=== PATIENT | female | born 1980 ===

== ENCOUNTER → 2020-11-05 | Outpatient (CLI) | payer OTHER | END | disposition home or self-care (01) | LOC: PRENATAL 14:29 | PROVIDERS: ATTEND Obstetrics & Gynecology Maternal & Fetal Medicine | DX: O35.0XX1 Maternal care for (suspected) central nervous system malformation in fetus, fetus 1 (principal); O35.3XX1 Maternal care for (suspected) damage to fetus from viral disease in mother, fetus 1; O98.512 Other viral diseases complicating pregnancy, second trimester; O09.522 Supervision of elderly multigravida, second trimester; Z36.89 Encounter for other specified antenatal screening; Z3A.19 19 weeks gestation of pregnancy ==

== ENCOUNTER 2021-03-04 23:05 | Inpatient (IN) | payer OTHER ==
[~2021-03-04] VITALS: Ht 170.2 cm; Wt 99.8 kg
== END 2021-03-06 16:03 | disposition home or self-care (01) | DRG 833 ==
LOC: OBS/DEL 23:05 → LDR 03-05 17:05
PROVIDERS: ADMIT Obstetrics & Gynecology Obstetrics; ATTEND Obstetrics & Gynecology Obstetrics
PROC: 4A1HXFZ Monitoring of Products of Conception, Cardiac Rhythm, External Approach (ICD-10-PCS; principal; 2021-03-05)
PROC: BY4FZZZ Ultrasonography of Third Trimester, Single Fetus (ICD-10-PCS; 2021-03-05)
DX: O13.3 Gestational [pregnancy-induced] hypertension without significant proteinuria, third trimester (principal); Z3A.35 35 weeks gestation of pregnancy

== ENCOUNTER 2021-03-11 20:37 | Inpatient (IN) | payer OTHER ==
[~2021-03-11] VITALS: Ht 170.2 cm; Wt 99.8 kg
[2021-03-13] MEDS ORDERED: NIFEDIPINE ER30 M1 (16:30)
== END 2021-03-14 17:59 | disposition home or self-care (01) | DRG 833 ==
LOC: OBS/DEL 20:37 → LDR 03-12 19:55 → OB/GYN 03-13 21:58
PROVIDERS: ADMIT Obstetrics & Gynecology Obstetrics; ATTEND Obstetrics & Gynecology Obstetrics
PROC: 4A1HXFZ Monitoring of Products of Conception, Cardiac Rhythm, External Approach (ICD-10-PCS; principal; 2021-03-12)
PROC: BY4FZZZ Ultrasonography of Third Trimester, Single Fetus (ICD-10-PCS; 2021-03-12)
DX: O13.3 Gestational [pregnancy-induced] hypertension without significant proteinuria, third trimester (principal); Z3A.36 36 weeks gestation of pregnancy; Z20.822 Contact with and (suspected) exposure to COVID-19

== ENCOUNTER 2021-03-18 13:35 | Inpatient (IN) | payer OTHER ==
[~2021-03-18] VITALS: Ht 170.2 cm; Wt 99.8 kg
[~2021-03-18 13:35] MED LIST: NIFEDIPINE ER30 M1
[2021-03-19] MEDS ORDERED: NIFEDIPINE ER30 M1 (10:24)
[2021-03-19] MEDS ORDERED: CLOTRIMAZOLE28 GM (10:24)
== END 2021-03-22 14:40 | disposition home or self-care (01) | DRG 785 ==
LOC: LDR 13:35 → O/R 03-19 20:48 → OB/GYN 03-19 21:07
PROVIDERS: ADMIT Obstetrics & Gynecology Obstetrics; ATTEND Obstetrics & Gynecology Obstetrics
PROC: 10D00Z1 Extraction of Products of Conception, Low, Open Approach (ICD-10-PCS; principal; 2021-03-18)
PROC: 4A1HXFZ Monitoring of Products of Conception, Cardiac Rhythm, External Approach (ICD-10-PCS; 2021-03-18)
PROC: 0UB70ZZ Excision of Bilateral Fallopian Tubes, Open Approach (ICD-10-PCS; 2021-03-18)
PROC: 3E0P7VZ Introduction of Hormone into Female Reproductive, Via Natural or Artificial Opening (ICD-10-PCS; 2021-03-19)
DX: O15.1 Eclampsia complicating labor (principal); O61.0 Failed medical induction of labor; O13.3 Gestational [pregnancy-induced] hypertension without significant proteinuria, third trimester; Z37.0 Single live birth; Z3A.37 37 weeks gestation of pregnancy; Z20.822 Contact with and (suspected) exposure to COVID-19; Z30.2 Encounter for sterilization